=== PATIENT | female | born 1995 | race Hispanic/Latino ===

== ENCOUNTER 2016-11-26 14:25 | Outpatient (CLI) | payer OTHER ==
[2016-11-28 22:22] LABS: Chlamydia by PCR Not Detected (NotDetected); GC by PCR Not Detected (NotDetected)
== END 2016-11-26 14:26 | disposition home or self-care (01) ==
LOC: MADLABBHPM 14:25
PROVIDERS: ATTEND Family Medicine
DX: R10.2 Pelvic and perineal pain (principal)
CPT/HCPCS: 36415; 87480; 87491; 87510; 87591; 87660

== ENCOUNTER 2016-12-02 09:12 | Outpatient (CLI) | payer OTHER ==
--- NOTE | 2016-12-02 12:39 | ULT ---
PELVIC ULTRASOUND HISTORY: Pelvic pain x2 years, worsening. COMPARISON: None. TECHNIQUE: Transabdominal and endovaginal imaging of the pelvis is performed. The ovaries are interrogated wit h Gy-scale, color-flow, Doppler imaging, and spectral wave-form analysis. FINDINGS: The uterus is identified, measuring 7.2 x 3.6 x 5.4 cm. Multiple nabothian cysts in the cervix are noted. The endometrial diameter is 0.9 cm. Overall, the endometrium has a homogeneous echotexture. The right ovary demonstrates multiple follicles. Normal echotexture. The right ovary measures 4 x 1.9 x 1.4 cm. The left ovary has a normal echotexture. Possible slightly complex follicles may be present. Overa ll, the left ovary measures 2.9 x 2 x 1.8 cm. No free fluid. On ovarian Doppler, there is vascular flow to the right and left ovary. IMPRESSION: 1. Unremarkable pelvic ultrasound. 2. Multiple nabothian cysts in the lower uterine segment. POS: [facility]
== END 2016-12-02 09:13 | disposition home or self-care (01) ==
LOC: MADULT 09:12
PROVIDERS: ATTEND Family Medicine
DX: R10.2 Pelvic and perineal pain (principal); N88.8 Other specified noninflammatory disorders of cervix uteri
CPT/HCPCS: 76856